=== PATIENT | female | born 1945 | race Caucasian/White ===

== ENCOUNTER 2024-09-17 08:24 | Observation (INO) | payer MEDICARE, SELFPAY ==
[2024-09-17] VITALS (19 sets, daily range): BP systolic 48–127; BP diastolic 22–96; PULSE 73–128; RESP 14–23; TEMP 36.5–37.2; O2SAT 95–98; BMI 23.6; BMI 26.9
--- NOTE | 2024-09-17 08:40 | PC.NURSE ---
PATIENT SENT TO ER PER Chris HILARIO APRN FOR FURTHER EVALUATION. REPORT GIVEN TO DR. VICKERS BY Chris HILARIO APRN. PATIENT TRANSPORTED TO ER VIA WHEELCHAIR WITH [facility] STAFF ASSIST. DAUGHTER AT BEDSIDE
--- NOTE | 2024-09-17 08:43 | ED_ITS ---
Discharge Plan Disposition Patient Disposition: Admitted Clinical Impressions Clinical Impression: Acute UTI, Atrial fibrillation with RVR, Acute hyponatremia, General weakness Discharge ED Provider: Patricia Curtis [facility] [place] General Chief complaint: Recheck/Abnormal Lab/Rx Stated complaint: weakness, dizzy, soa Time Seen by Provider: 09/17/24 08:43 History of Present Illness Provider Complaint: Patient daughter states that patient was sick last week and went to her PCP and got a couple shots not sure what or what for. Daughter states that patient normally active taking care of her . daughter lives in [place] and has been calling and checking on her and she became concerned when patient told her that she was not able to get out of bed so daughter drove in Patient states that she just feels very weak and not been able to eat or drink much and states just dont feel well daughter tried to get her to come in last night but she couldn't get up out of bed so this morning she got her up and brought her in, Daughter states mother is not acting right and as she was registering she felt like she was going to go down Related Data Home Medications ?Medication ?Instructions ?Recorded ?Confirmed aspirin 81 mg chewable tablet 81 mg PO DAILY heart [facility] 06/23/18 09/17/24 isosorbide mononitrate 60 mg 60 mg PO DAILY 06/23/18 09/17/24 tablet,extended release 24 hr apixaban 5 mg tablet (Eliquis) 5 mg PO BID 09/17/24 09/17/24 lisinopril 40 mg tablet 10 mg PO DAILY 09/17/24 09/17/24 Allergies Allergy/AdvReac Type Severity Reaction Status Date / Time No Known Allergies Allergy Unverified 09/17/24 10:21 [facility] Disclaimer: The information contained in this section may have been updated after the patient was seen, as this information can be updated by other users. Medical History Hyperlipemia Hypertension Atrial fibrillation Family History Other No significant family history Social History Smoking Status: Never smoker alcohol intake: never current occupational status: retired Travel in the last 8 weeks: None ROS Obtained: Yes All systems reviewed & no additional complaints except as documented and Yes Systems reviewed as appropriate & no additional complaints except as documented Constitutional Constitutional: Reports system reviewed and no additional complaints, except as documented, Reports as per HPI, Reports poor appetite, Reports lethargy and Reports weakness ENT Ears, Nose, Mouth, and Throat: Reports system reviewed and no additional complaints, except as documented, Reports as per HPI, Reports disequilibrium and Reports dizziness Cardiovascular Cardiovascular: Reports system reviewed and no additional complaints, except as documented and Reports as per HPI Respiratory Respiratory: Reports system reviewed and no additional complaints, except as documented and Reports as per HPI Gastrointestinal Gastrointestingal: Reports system reviewed and no additional complaints, except as documented and as per HPI Neurologic Neurologic: Reports system reviewed and no additional complaints, except as documented, Reports as per HPI, Reports disequilibrium, Reports dizziness and Reports weakness Physical Exam General General appearance: alert and in no apparent distress Respiratory Respiratory exam: Present normal lung sounds bilaterally (has had right lower lobe removed); Absent respiratory distress Cardiovascular Cardiovascular exam: Present regular rate, irregular rhythm, normal heart sounds and other (Patient has hx of Afib) Neurological Exam Neurological exam: Present alert and oriented X3 Skin Skin exam: Present warm and dry Medical Decision Making Medical Records Screening: Per USPSTF and CDC recommendations, given the prevalence of disease in our region, it is our hospital?s policy to screen for HIV and viral Hepatitis for all patients aged 18 and over and those with ongoing risk factors. Sami Inquiry Pt receiving controlled substance: No Sami was queried for this patient: No Lab Data 09/17/24 09:10 09/17/24 09:10 Medical Decision Narrative: Patient sitting in wheelchair, BP found to be low 73/35 patient denies chest pain, states just dont feel well and reports feeling weak Daughter states patient normally active and has been so weak she couldnt get out of bed and not eaten or drink much, States while registering patient was unstable and she felt like she was going to go down so she got her a wheelchair, Due to patient low BP and complaints recommended transfer to the ED for furhter work up and evaluation and she agreed Called ED and patient was moved to the ED
--- NOTE | 2024-09-17 09:02 | ECG_ITS ---
APPROVED REPORT Exam: Resting ECG HR:110 bpm ECG Measurements Heart Rate 110 AXES QRSd 78 QRS 12 QT 324 T 37 QTc 389 Conclusion ATRIAL FIBRILLATION WITH RAPID VENTRICULAR RESPONSE MODERATE ST DEPRESSION [0.05+ mV ST DEPRESSION] ABNORMAL ECG Electronically signed by : MIGUEL ÁNGEL VICKERS, 09/17/2024 15:28:42
--- NOTE | 2024-09-17 09:19 | PC.NURSE ---
lab is going to walk VBG over to RT; spoke with Zandra in Lab
[2024-09-17 09:26] LABS: VBG Base Excess -3.6 mmol/L (-2.4-2.3); VBG HCO3 22.5 mmol/L (23-30); VBG Oxygen Saturation 54.3 % (50-70); VBG PCO2 44.5 mmol/L (35-51); VBG PH 7.32 mmol/L (7.31-7.41); VBG PO2 29.2 mmol/L (28-40); VBG Total CO2 23.8 mmol/L (23-27)
[2024-09-17 09:28] LABS: Lactate Venous 3.2 mmol/L (0.4-2.0)
--- NOTE | 2024-09-17 09:29 | XR_ITS ---
PROCEDURE INFORMATION: Exam: XR Chest Exam date and time: 09/17/2024 9:28 AM Age: 78 years old Clinical indication: Other: Congestion, gen weakness TECHNIQUE: Imaging protocol: Radiologic exam of the chest. Views: 2 views. COMPARISON: CR HUMERLT XR humerus LT 06/23/2018 6:51 PM FINDINGS: Lungs: No evidence of pneumonia or interstitial edema. Surgical clips noted in the right hilar region. Pleural spaces: Unremarkable. No pleural effusion. No pneumothorax. Heart/Mediastinum: Unremarkable. No cardiomegaly. Diaphragm: Right hemidiaphragm is elevated. Question diaphragmatic eventration Bones/joints: Fixation hardware in the proximal humerus IMPRESSION: 1. No evidence of pneumonia or interstitial edema. 2. Right hemidiaphragm is elevated. Question diaphragmatic eventration
[2024-09-17 09:30] LABS: Albumin Level 3.8 g/dl (3.5-5.0); Chloride 99 mmol/L (98-107); Potassium 3.9 mmoL/L (3.5-5.1); Sodium 131 mmol/L (136-145)
[2024-09-17 09:32] LABS: Blood Urea Nitrogen 19 mg/dl (7-17); Creatinine Clearance Estimated 45 mL/min (50-200); Estimated Glomerular Filt Rate 54 ml/min (>60); GFR (African American) 65 ML/MIN (>60)
[2024-09-17 09:33] LABS: Alanine Aminotransferase 35 U/L (12-78); Albumin/Globulin Ratio 1.5 (1.1-1.8); Alkaline Phosphatase 96 U/L (38-126); Anion Gap 13.9 mEq/L (5-15); Aspartate Amino Transferase 47 U/L (14-36); Bilirubin,Total 1.2 mg/dl (0.2-1.3); Calcium 8.8 mg/dl (8.4-10.2); Carbon Dioxide 22 mmol/L (22.0-30.0); Globulin 2.6 g/dL (1.3-3.2); Glucose 156 mg/dl (74-100); Phosphorous 3.8 mg/dl (2.5-4.5); Total Protein,Serum 6.4 g/dl (6.3-8.2)
[2024-09-17 09:43] LABS: NT Pro Brain Natriuretic Pep. 737 pg/mL (0-450)
[2024-09-17 09:45] LABS: Troponin I 0.02 ng/ml (0.00-0.034)
[2024-09-17 09:55] LABS: Lactic Acid 2.4 mmol/L (0.7-2.1)
[2024-09-17 10:03] LABS: Basophils # 0.1 K/mm3 (0-0.2); Basophils % 0.7 % (0.1-2.0); Eosinophils % 0.2 % (0.1-12.0); Hematocrit 44.5 % (37.0-47.0); Hemoglobin 15.4 g/dL (12.2-16.2); Lymphocytes # 1.1 K/mm3 (0.7-4.5); Lymphocytes % 12.9 % (10-50); Mean Corpuscular HGB Conc 34.6 g/dL (31.8-35.4); Mean Corpuscular Volume 89.6 fl (81-99); Mean Platelet Volume 8.9 fl (7.4-10.4); Monocytes # 0.5 K/mm3 (0.1-1.0); Monocytes % 5.7 % (1.7-9.3); Neutrophils # 6.6 K/mm3 (1.8-7.8); Neutrophils % 80.5 % (37.0-80.0); Platelet Count 189 K/mm3 (142-424); Red Blood Count 4.96 M/mm3 (4.20-5.40); Red Cell Distribution Width 13.6 % (11.5-17.5); White Blood Count 8.2 K/mm3 (4.8-10.8)
[2024-09-17 10:10] LABS: Coronavirus 19, PCR Not Detected (NotDetected); Influenza A, PCR Not Detected (NotDetected); Influenza B, PCR Not Detected (NotDetected)
--- NOTE | 2024-09-17 10:11 | PC.NURSE ---
UA sent to lab
[2024-09-17] MEDS: 0.9 % SODIUM CHLORIDE 1000ML 1,000 ML 999 ML IV (10:27)
[2024-09-17 10:28] LABS: Microscopic, Urine URINE MICROSCOPIC (MICROSCOPIC)
[2024-09-17 10:29] LABS: Procalcitonin 0.638 ng/mL (0.0-2.0)
[2024-09-17 10:36] LABS: Appearance,Urine SL CLOUDY (Clear); Blood, Urine Negative (Negative); Color,Urine AMBER (Yellow); Glucose,Urine (UA) Negative (Negative); Ketones,Urine 1+ (Negative); Leukocyte Esterase,Urine 1+ (Negative); Nitrate,Urine POSITIVE (Negative); Protein,Urine 1+ (Negative); Specific Gravity, Urine >= 1.030 (1.005-1.030)
--- NOTE | 2024-09-17 10:46 | PC.NURSE ---
pt is resting in bed. family @ bedside. fluids infusing
[2024-09-17 10:48] LABS: Bacteria,Urine 2+ /lpf; Bilirubin,Urine 1+ (Negative); RBC,Urine Occasional #/hpf (0-3); Squamous Epithelial Cell,Urine Occasional #/hpf (0-5); WBC,Urine 20-50 #/hpf (0-3)
--- NOTE | 2024-09-17 10:49 | PC.NURSE ---
Rounded on patient; pt asked for come coffee and to watch the olivera is right. TV turned on. Family at BS, call light within reach. No other needs at this time.
[2024-09-17 10:57] LABS: T4 (Thyroxine) 10.2 ug/dl (5.53-11.0)
[2024-09-17 11:11] LABS: Thyroid Stimulating Hormone 1.12 uIU/mL (0.465-4.68)
--- NOTE | 2024-09-17 11:25 | ED_ITS ---
Discharge Plan Disposition Patient Disposition: Admitted Clinical Impressions Clinical Impression: Acute UTI, Atrial fibrillation with RVR, Acute hyponatremia, General weakness Discharge ED Provider: Patricia Curtis [facility] HPI General Chief complaint: Recheck/Abnormal Lab/Rx Stated complaint: weakness, dizzy, soa Time Seen by Provider: 09/17/24 08:43 Mode of Arrival: Wheelchair Source of Information: Patient and Relative Limitations: No Limitations Description of Symptoms (Recalled from ER Triage Doc. by RN): increased weakness,fatigue,poor appetite History of Present Illness HPI narrative: This patient is a 78-year-old female with a history of hypertension, hyperlipidemia, atrial fibrillation on Eliquis presenting to the emergency department for evaluation with concern for weakness, fatigue, poor appetite that has been going on for several days. She states she has had some cough and congestion and her left ear is a little bit painful. She has no other significant specific complaints, overall to stated that she does not feel well. She initially went to [facility] [place] who noted that her blood pressure was low and that she looked very pale and weak, so they sent her over here for further evaluation. Patient denies any significant headache, vision changes, numbness, tingling, unilateral weakness, gait issues, chest pain, shortness of breath, abdominal pain, vomiting, changes bowel movements, urinary symptoms, or other concerns. She does note very poor oral intake over the last little bit. Related Data Home Medications ?Medication ?Instructions ?Recorded ?Confirmed aspirin 81 mg chewable tablet 81 mg PO DAILY heart health 06/23/18 06/23/18 hydrochlorothiazide 25 mg tablet 25 mg PO DAILY Fluid 06/23/18 06/23/18 isosorbide mononitrate 60 mg 60 mg PO DAILY 06/23/18 09/17/24 tablet,extended release 24 hr lovastatin 20 mg tablet 20 mg PO DAILY Cholesterol 06/23/18 06/23/18 metoprolol succinate 100 mg 100 mg PO DAILY bp 06/23/18 06/23/18 tablet,extended release 24 hr (Toprol XL) Allergies Allergy/AdvReac Type Severity Reaction Status Date / Time No Known Allergies Allergy Unverified 09/17/24 10:21 [facility] Disclaimer: The information contained in this section may have been updated after the patient was seen, as this information can be updated by other users. Social History (Reviewed 09/17/24 @ 11:31 by JUNIE Camejo Smoking Status: Never smoker alcohol intake: never current occupational status: retired Travel in the last 8 weeks: None ROS Obtained: Yes All systems reviewed & no additional complaints except as documented Physical Exam General General appearance: alert and in no apparent distress Comment: Pale, generally weak Head Head exam: atraumatic and normocephalic Eye Eye exam: Present normal appearance, PERRL and EOMI ENT ENT exam: Present normal exam, normal oropharynx, mucous membranes moist and normal external ear exam Neck Neck exam: Present normal inspection, full ROM and trachea midline; Absent tenderness Chest Chest inspection: Present normal inspection and symmetric chest wall rise; Absent tenderness Respiratory Respiratory exam: Present normal lung sounds bilaterally; Absent respiratory distress, wheezes, stridor or accessory muscle use Cardiovascular Cardiovascular exam: Present tachycardia and irregular rhythm Abdominal Exam Abdominal exam: Present soft; Absent distention, tenderness or guarding Extremities Exam Extremities exam: Present normal inspection, full ROM and normal capillary refill; Absent tenderness or edema Back Exam Back exam: Present normal inspection and full ROM; Absent tenderness Neurological Exam Neurological exam: Present alert, oriented X3, CN II-XII intact and normal gait; Absent motor sensory deficit Psychiatric Psychiatric exam: Present normal affect and normal mood Skin Skin exam: Present warm, dry and pallor Medical Decision Making Medical Records Medical records reviewed: Yes I reviewed the patient's medical records. Screening: Per USPSTF and CDC recommendations, given the prevalence of disease in our region, it is our hospital?s policy to screen for HIV and viral Hepatitis for all patients aged 18 and over and those with ongoing risk factors. Sami Inquiry Pt receiving controlled substance: No Vital Signs: 09/17/24 08:35 09/17/24 08:37 09/17/24 08:45 Temperature 98.1 F 98.0 F Temperature Source Oral Oral Pulse Rate Pulse Rate [Right Brachial] 73 119 H Respiratory Rate 20 18 Blood Pressure Blood Pressure [Right Arm] 73/35 L 88/50 L 86/36 L Blood Pressure Mean Blood Pressure Mean [Right Arm] 47 62 52 Blood Pressure Source [Right Arm] Automatic Cuff Manual Cuff/ Auscultation Blood Pressure Position [Right Arm] Sitting Sitting 02 Sat by Pulse Oximetry 97 98 Oxygen Delivery Method Room Air 09/17/24 09:11 09/17/24 09:30 09/17/24 10:00 Temperature Temperature Source Pulse Rate 128 H 110 H 110 H Pulse Rate [Right Brachial] Respiratory Rate Blood Pressure 91/67 L 103/70 L 112/77 Blood Pressure [Right Arm] Blood Pressure Mean 75 88 Blood Pressure Mean [Right Arm] Blood Pressure Source [Right Arm] Blood Pressure Position [Right Arm] 02 Sat by Pulse Oximetry 97 97 98 Oxygen Delivery Method Room Air Room Air Room Air 09/17/24 10:30 09/17/24 11:00 09/17/24 11:30 Temperature Temperature Source Pulse Rate 112 H 117 H 92 H Pulse Rate [Right Brachial] Respiratory Rate Blood Pressure 107/70 L 103/69 L 105/68 L Blood Pressure [Right Arm] Blood Pressure Mean Blood Pressure Mean [Right Arm] Blood Pressure Source [Right Arm] Blood Pressure Position [Right Arm] 02 Sat by Pulse Oximetry 96 98 96 Oxygen Delivery Method Room Air Room Air 09/17/24 12:00 09/17/24 12:30 09/17/24 13:00 Temperature Temperature Source Pulse Rate 103 H 124 H Pulse Rate [Right Brachial] Respiratory Rate Blood Pressure 124/62 114/72 127/79 Blood Pressure [Right Arm] Blood Pressure Mean 85 89 Blood Pressure Mean [Right Arm] Blood Pressure Source [Right Arm] Blood Pressure Position [Right Arm] 02 Sat by Pulse Oximetry 95 98 Oxygen Delivery Method Room Air 09/17/24 13:31 09/17/24 13:34 09/17/24 14:00 Temperature Temperature Source Pulse Rate 121 H 91 H 113 H Pulse Rate [Right Brachial] Respiratory Rate 14 16 23 Blood Pressure 48/22 L 125/69 117/96 H Blood Pressure [Right Arm] Blood Pressure Mean 31 81 103 Blood Pressure Mean [Right Arm] Blood Pressure Source [Right Arm] Blood Pressure Position [Right Arm] 02 Sat by Pulse Oximetry 98 97 Oxygen Delivery Method 09/17/24 14:41 Temperature 97.8 F Temperature Source Pulse Rate 103 H Pulse Rate [Right Brachial] Respiratory Rate 20 Blood Pressure 106/62 L Blood Pressure [Right Arm] Blood Pressure Mean Blood Pressure Mean [Right Arm] Blood Pressure Source [Right Arm] Blood Pressure Position [Right Arm] 02 Sat by Pulse Oximetry Oxygen Delivery Method Lab Data Lab results reviewed: Yes I reviewed the patient's lab results. Lab Results 09/17/24 09:10: WBC 8.2, RBC 4.96, Hgb 15.4, Hct 44.5, MCV 89.6, MCH 31.0, MCHC 34.6, RDW 13.6, Plt Count 189, MPV 8.9, Neut % (Auto) 80.5 H, Lymph % (Auto) 12.9, [place] % (Auto) 5.7, Eos % (Auto) 0.2, Baso % (Auto) 0.7, Neut # (Auto) 6.6, Lymph # (Auto) 1.1, [place]ole # (Auto) 0.5, Eos # (Auto) 0.0, Baso # (Auto) 0.1, S odium 131 L, Potassium 3.9, Chloride 99, Carbon Dioxide 22, Anion Gap 13.9, BUN 19 H, Creatinine 1.00, Estimated Creat Clear 45, Estimated GFR 54 L, Est GFR ( Amer) 65, Glucose 156 H, Calcium 8.8, Phosphorus 3.8, Magnesium 2.0, Total Bilirubin 1.2, AST 47 H, ALT 35, Alkaline Phosphatase 96, Troponin I 0.02, NT-Pro-B Natriuret Pep 737 H, Total Protein 6.4, Albumin 3.8, Globulin 2.6, Albumin/Globulin Ratio 1.5, Procalcitonin 0.638, TSH 1.12, Thyroxine (T4) 10.2, HIV 1&2 Antibody Rapid Nonreactive 09/17/24 09:14: VBG pH 7.32, VBG pCO2 44.5, VBG pO2 29.2, VBG HCO3 22.5 L, VBG Total CO2 23.8, VBG O2 Saturation 54.3, VBG Base Excess -3.6 L, VBG Lactic Acid 3.2 H 09/17/24 09:25: Lactate 2.4 H 09/17/24 10:05: SARS-CoV-2 (PCR) Not detected, Influenza A Untype (PCR) Not detected, Influenza Type B (PCR) Not detected 09/17/24 10:10: Urine Color Patricia, Urine Appearance Sl cloudy, Urine pH 6.0, Ur Specific [place] >= 1.030, Urine Protein 1+ A, Urine Glucose (UA) Negative, Urine Ketones 1+, Urine Blood Negative, Urine Nitrate Positive, Urine Bilirubin 1+ A, Urine Urobilinogen 2.0, Ur Leukocyte Esterase 1+ A, Urine RBC Occasional, Urine WBC 20-50, Ur Squamous Epith Cells Occasional, Urine Bacteria 2+ 09/17/24 13:35: Lactate 1.9, Troponin I 0.03 09/17/24 09:10 09/17/24 09:10 Orders (Tests/Meds): ED MEDICATIONS Discontinued Medications Generic Name Dose Route Start Last Admin Trade Name Freq PRN Reason Stop Dose Admin Sodium Chloride 1,000 mls @ 999 mls/hr 09/17/24 10:17 09/17/24 10:27 Sod Chlor 0.9% 1000ml Bag IV 09/17/24 11:17 999 mls/hr .Q1H1M ONE Administration Ceftriaxone Sodium 2 gm/ 100 mls @ 200 mls/hr 09/17/24 11:30 09/17/24 12:18 Sodium Chloride IV 09/17/24 11:59 200 mls/hr ONCE ONE Administration ORDERS Category Date Time Status CXR 2 view (NOT portable) [XR chest 2V] Stat Exams 09/17/24 09:29 Completed BNP [NT Pro Brain Natriuretic Pep.] Stat Lab 09/17/24 09:10 Completed Complete Blood Count Auto Diff AMLAB Lab 09/18/24 06:00 Ordered Complete Blood Count Auto Diff Stat Lab 09/17/24 09:10 Completed Comprehensive Metabolic Panel AMLAB Lab 09/18/24 06:00 Ordered Comprehensive Metabolic Panel Stat Lab 09/17/24 09:10 Completed HIV (1&2) Antibody Rapid Stat Lab 09/17/24 09:10 Completed Hep C Ab with Reflex to RNA Stat Lab 09/17/24 09:10 Received Lactic Acid Follow Up (RFLX 1) Stat Lab 09/17/24 13:35 Completed Lactic Acid Stat Lab 09/17/24 09:25 Completed MAG [Magnesium] Stat Lab 09/17/24 09:10 Completed Magnesium AMLAB Lab 09/18/24 06:00 Ordered PHOS [Phosphorous] Stat Lab 09/17/24 09:10 Completed Procalcitonin Stat Lab 09/17/24 09:10 Completed Rapid PCR Covid and Flu A/B Stat Lab 09/17/24 10:05 Completed T4 (Thyroxine) Stat Lab 09/17/24 09:10 Completed TSH [Thyroid Stimulating Hormone] Stat Lab 09/17/24 09:10 Completed Trop I [Troponin I] Stat Lab 09/17/24 09:10 Completed Troponin I Q3H Lab 09/17/24 13:35 Completed Troponin I Q3H Lab 09/17/24 15:15 Ordered UA [Urinalysis and Microscopic] Stat Lab 09/17/24 10:10 Completed Blood Culture Stat Micro 09/17/24 11:54 Received Urine Culture Stat Micro 09/17/24 10:10 Received VBG [Venous Blood Gas] Stat RT 09/17/24 09:14 Completed ECG Data Tracing #1: I reviewed this ECG and interpreted as documented below: Atrial fibrillation with a ventricular rate of [address] changes concerning for ischemia. ECG initial impression date: 09/17/24 ECG initial impression time: 09:04 Medical Decision Narrative: In summary, this patient is a 78-year-old female presenting to the Emergency Department for evaluation of general weakness, poor appetite. Differential diagnoses considered include but are not limited to dehydration, electrolyte derangements, SHAMA, urinary tract infection, pneumonia, viral syndrome. Ruling out the most morbid conditions drove assessment. It should be noted patient's history includes atrial fibrillation which is not at goal therapy. This complicates all aspects of care by increasing patient's risk for morbidity On exam, the patient is sitting upright in bed in no acute distress. She is nontoxic-appearing. She does appear generally weak and pale. She is tachycardic with irrregular rhythm and has soft pressure with initial systolic in the 80s. No focal neurologic deficits. Cardiopulmonary and abdominal exams are benign. Workup included broad lab evaluation to evaluate for metabolic, infectious, cardiac causes. EKG demonstrates afib RVR. Patient given 1L normal saline given poor appetite and concerns for dehydration as a cause. I independently interpreted chest x-ray prior to the radiologist read and noted no acute focal consolidation concerning for pneumonia. Please see their read for final interpretation. Labs were obtained that demonstrated elevated BNP, hyponatremia, mildly elevated lactic, and concern for urinary tract infection. Urine culture and blood cultures were sent and are pending. On reassessment, patient had some improvement after administration of a liter bolus of IV fluids. She was not given full sepsis bolus given concerns for possible volume overload with elevated BNP in the setting of atrial fibrillation. She is also tachypneic with significant increased work of breathing that worsens whenever she walks to the bathroom. She did desaturate when walking to the bathroom and also her heart rate increased from the 110s to 160s with going to the bathroom. At rest, she was in the low 100s to 110s. I considered administering rate control, however unclear if this is compensatory related to possible sepsis secondary to UTI versus the primary issue. Given this, I did not administer rate control since the patient is stable at rest. At this time, patient was deemed to be appropriate for admission for continued monitoring of her heart rate as well as treatment of urinary tract infection. I had an interactive discussion with the hospitalist who admitted the patient for further evaluation and management. I started her on Rocephin prior to admission. Critical Care Critical Care Time Critical Care Time: No
[2024-09-17] MEDS: CEFTRIAXONE SODIUM 2 GM in 0.9 % SODIUM CHLORIDE 100 ML IV (12:18)
--- NOTE | 2024-09-17 13:16 | PC.NURSE ---
Dr. Curtis at bedside
[2024-09-17 13:28] LABS: Reflex Lactic Add Lactic Reflex
[2024-09-17 13:55] LABS: HIV (1&2) Antibody Rapid NONREACTIVE (NONREACTIVE)
[2024-09-17 13:56] LABS: Lactic Acid Follow Up (RFLX 1) 1.9 mmol/L (0.7-2.1)
--- NOTE | 2024-09-17 13:56 | P.HP_ITS ---
History of Present Illness *Admission Date: 09/17/24 *Reason for visit:: Weakness *History of present illness: Ms. washburn 78-year-old female who presented to the ER at the request of her family due to worsening fatigue, weakness, poor appetite. Family states that over the past week she has become more fatigued. They were concerned yesterday and have been encouraging her to go to the doctor. Was recently treated for concern for ear infection, does not recall what antibiotics or steroids she received. States that she has been feeling better from a URI standpoint but has had poor p.o. intake. Family encouraged her to come to the ER for evaluation today. Found to be in A-fib with RVR. Urinalysis grossly abnormal concerning for UTI. Received IV fluids in the ER and feeling somewhat better but given her weakness, medicine consulted for admission and further management. On evaluation, states she has been feeling poorly for several days. Denies headache, nausea, vomiting, chest pain, shortness of breath. Feels overall globally weak. Denies any urinary burning or frequency. Does report incontinence however and this is normal for her. Has been caring for her and has been overwhelmed. He has Alzheimer's and she has to be vigilant in caring for him. This affects her sleep and is impacting her self-care. [facility] Disclaimer: The information contained in this section may have been updated after the patient was seen, as this information can be updated by other users. Medical History Hyperlipemia Hypertension Atrial fibrillation Family History Other No significant family history Social History Smoking Status: Never smoker alcohol intake: never current occupational status: retired Travel in the last 8 weeks: None Review of Systems Review of Systems Review of systems (narrative): 14 point review of systems performed, pertinent positives and negatives as per HPI Constitutional Constitutional: Reports weakness ENT Ears, Nose, Mouth, and Throat: Reports disequilibrium and Reports dizziness *Neurologic Neurologic: Reports system reviewed and no additional complaints, except as documented, Reports as per HPI, Reports disequilibrium, Reports dizziness and Reports weakness Meds Home Medications and Allergies Home Medications ?Medication ?Instructions ?Recorded ?Confirmed ?Type aspirin 81 mg chewable tablet 81 mg PO DAILY heart health 06/23/18 09/17/24 History isosorbide mononitrate 60 mg 60 mg PO DAILY 06/23/18 09/17/24 History tablet,extended release 24 hr apixaban 5 mg tablet (Eliquis) 5 mg PO BID 09/17/24 09/17/24 History lisinopril 40 mg tablet 10 mg PO DAILY 09/17/24 09/17/24 History New Prescriptions to Start Prescriptions: Allergies Allergy/AdvReac Type Severity Reaction Status Date / Time No Known Allergies Allergy Unverified 09/17/24 10:21 Exam Data for Last 24 hours Vital signs and Labs for Last 24 Hours: Temp Pulse Resp BP Pulse Ox O2 Del Method 98.0 F 103 H 18 124/62 95 Room Air 09/17/24 08:45 09/17/24 12:00 09/17/24 08:45 09/17/24 12:00 09/17/24 12:00 09/17/24 12:00 Laboratory Results - last 24 hr 09/17/24 09:10: WBC 8.2, RBC 4.96, Hgb 15.4, Hct 44.5, MCV 89.6, MCH 31.0, MCHC 34.6, RDW 13.6, Plt Count 189, MPV 8.9, Neut % (Auto) 80.5 H, Lymph % (Auto) 12.9, [place] % (Auto) 5.7, Eos % (Auto) 0.2, Baso % (Auto) 0.7, Neut # (Auto) 6.6, Lymph # (Auto) 1.1, [place] # (Auto) 0.5, Eos # (Auto) 0.0, Baso # (Auto) 0.1, Sodium 131 L, Potassium 3.9, Chloride 99, Carbon Dioxide 22, Anion Gap 13.9, BUN 19 H, Creatinine 1.00, Estimated Creat Clear 45, Estimated GFR 54 L, Est GFR ( Amer) 65, Glucose 156 H, Calcium 8.8, Phosphorus 3.8, Magnesium 2.0, Total Bilirubin 1.2, AST 47 H, ALT 35, Alkaline Phosphatase 96, Troponin I 0.02, NT-Pro-B Natriuret Pep 737 H, Total Protein 6.4, Albumin 3.8, Globulin 2.6, Albumin/Globulin Ratio 1.5, Procalcitonin 0.638, TSH 1.12, Thyroxine (T4) 10.2, HIV 1&2 Antibody Rapid Nonreactive 09/17/24 09:14: VBG pH 7.32, VBG pCO2 44.5, VBG pO2 29.2, VBG HCO3 22.5 L, VBG Total CO2 23.8, VBG O2 Saturation 54.3, VBG Base Excess -3.6 L, VBG Lactic Acid 3.2 H 09/17/24 09:25: Lactate 2.4 H 09/17/24 10:05: SARS-CoV-2 (PCR) Not detected, Influenza A Untype (PCR) Not detected, Influenza Type B (PCR) Not detected 09/17/24 10:10: Urine Color Patricia, Urine Appearance Sl cloudy, Urine pH 6.0, Ur Specific [place] >= 1.030, Urine Protein 1+ A, Urine Glucose (UA) Negative, Urine Ketones 1+, Urine Blood Negative, Urine Nitrate Positive, Urine Bilirubin 1+ A, Urine Urobilinogen 2.0, Ur Leukocyte Esterase 1+ A, Urine RBC Occasional, Urine WBC 20-50, Ur Squamous Epith Cells Occasional, Urine Bacteria 2+ I & O for Last 24 hours: Intake & Output 09/14/24 09/15/24 09/16/24 09/17/24 23:59 22:59 23:59 23:59 Weight 60.328 kg Constitutional Constitutional: no acute distress, average body habitus and cooperative *Routine HEENT Exam Head: Present normocephalic Eye: Present EOMI and PERRL ENT: Present mucous membranes moist *Routine Neck Exam Neck: Present supple; Absent lymphadenopathy *Routine Respiratory Exam Respiratory: Present CTA bilaterally *Routine Cardiovascular Exam Cardiovascular: Present tachycardia and irregularly irregular *Routine Abdominal Exam Abdominal: Present soft and normoactive bowel sounds; Absent tenderness *Routine Rectal Exam Rectal:: deferred *Routine Genitalia Exam Genitalia:: deferred *Routine Extremities Exam Extremities: Absent cyanosis, clubbing or edema *Routine Skin Exam Skin: Present warm; Absent rash *Routine Neurological Exam Neurological: Present alert, oriented X3 and moving all extremities; Absent altered mental status Assessment and Plan *Assessment and plan (1) Atrial fibrillation with RVR: Status: Acute Category: Medical Code(s): I48.91 - Unspecified atrial fibrillation (2) Acute UTI: Status: Acute Category: Medical Code(s): N39.0 - Urinary tract infection, site not specified (3) Acute hyponatremia: Status: Acute Category: Medical Code(s): E87.1 - Hypo-osmolality and hyponatremia (4) General weakness: Status: Acute Category: Medical Code(s): R53.1 - Weakness Plan 78-year-old female who presented to the ER with weakness and fatigue. Workup concerning for A-fib and UTI. Discussed case with ER physician, request admission for further treatment of UTI, therapy eval, and further fluid resuscitation. I agreed to admit for further management. Problems addressed as follows: UTI: White count normal 8.2, urine grossly abnormal with positive nitrate, positive leuk esterase, 20-50 white cells and 2+ bacteria. Received dose of ceftriaxone in the ER, will continue Rocephin 1 g IV daily. Urine culture pending -Repeat CBC, CMP, magnesium ordered for the morning CHF A-fib -Rate uncontrolled at this time with heart rate 100 220. Will initiate metoprolol 5 mg IV once. Transition to oral metoprolol tartrate 25 mg twice daily this evening. Monitor for improvement, goal rate less than 90. Previously well-controlled on amiodarone in sinus rhythm but that was stopped a year ago after developing ocular calcifications. -Has continued Eliquis 5 mg twice daily. -Echocardiogram ordered, further management pending results. -BNP mildly elevated at 737. Does not appear frankly volume overloaded. -Monitoring troponin in the setting of A-fib. No chest pain at this time. -TSH normal at 1.1, magnesium 2.0, potassium 3.9. Sodium low at 131, monitor for improvement with fluid resuscitation. Unclear etiology at this time Due to weakness, PT and OT consulted to evaluate. -Case management consulted to evaluate and assist with any resources given patient's fatigue being primary caregiver for her with Alzheimer's Full code Eliquis 5 mg twice daily Cardiac diet
--- NOTE | 2024-09-17 13:59 | PC.NURSE ---
call made to house cleaner for bed placement
[2024-09-17 14:09] LABS: Troponin I 0.03 ng/ml (0.00-0.034)
--- NOTE | 2024-09-17 14:33 | PC.NURSE ---
report called to Rohini on second floor
--- NOTE | 2024-09-17 14:46 | PC.NURSE ---
arrived by w/c from ED
--- NOTE | 2024-09-17 15:50 | CA_ITS ---
APPROVED REPORT EXAM: Comprehensive 2D, Doppler, and color-flow Echocardiogram Cardiovascular Invasive Specialist: Nicole Vargas, RCS, RVS Ht: 4 ft 11 in Wt: 133lbs BSA: 1.55 BP: 124/62 mmHg Rhythm: Atrial Fibrillation Indications: uti, aFIB, HTN, HLD 2D Dimensions IVSd 0.87 cm F: 0.6-1.0 LVEF (Visual) 44.00 % PWd 0.81 cm F: 0.6 - 1.0 LA Volume 67.00 mL LVDd 4.69 cm F: 3.9 - 5.3 LA Volume Index 43.23 mL/m2 (M/F) 16-34 LVDs 3.79 cm F: 2.2 - 3.5 EF AP4 53.40 % Left Atrium 3.72 cm F: 2.7 - 3.8 GL Strain -14.7 % M-Mode Dimensions RVDd 3.00 cm (0.9-2.6) LA Diam 3.96 cm (1.9-4.0) LVDd 4.75 cm (3.5-5.7) LVDs 3.72 cm (3.5-5.7) IVSd 0.89 cm (0.6-1.1) PWd 0.68 cm (0.6-1.1) EF (Teich) 43.90% EPSs 0.75 cm FS 21.70% EDV (Teich) 104.90 mL TAPSE 1.58 (<1.7) ESV (Teich) 58.90 mL LV Diastology E Decel Time 120 (160-240 msec) E/A Ratio 1.86 MED A' 8.40 cm/s LAT A' 9.50 cm/s Aortic Valve PHILLIP Index 1.52 cm2/m2 AoV Peak [place]. 172.0 (50-130 cm/s) AO Peak GR. 11.90 mmHg AO Mean GR. 5.90 (<5 mmHg) AO VTI 25.4 (18-25 cm) PHILLIP (VTI) 2.42 (2.5-4.5 cm2) Mitral Valve MV A Velocity 81.0 (40-130 cm/s) E/A Ratio 1.86 MV Mean Gr. 3.50 (<2mmHg) Tricuspid Valve TR P. Velocity 282.00 cm/s RAP Estimate 10.00 mmHg RVSP 41.80 mmHg Left Ventricle The left ventricle is normal size. The left ventricular systolic function is normal. The left ventricular ejection fraction is within the normal range. There is increased LV wall thickness. There is normal LV segmental wall motion. The left ventricular diastolic function is normal. LVEF is 60%. Right Ventricle The right ventricle is normal size. The right ventricular systolic function is normal. Atria Left atrium is moderately dilated. Right atrium is mildly dilated. There is no Doppler evidence of interatrial shunt. Aortic Valve The aortic valve is mildly thickened. There is no aortic valvular stenosis. Trace aortic regurgitation. Mitral Valve The mitral valve leaflets are mildly thickened. No evidence of mitral valve stenosis. At least mild mitral regurgitation is present. The MR severity may be underestimated due to technically difficult study and eccentric jet. Tricuspid Valve The tricuspid valve leaflets are thin and pliable. Mild tricuspid regurgitation. RVSP is 25-30 mmHg. Pulmonic Valve The pulmonary valve is normal in structure. Trace pulmonic regurgitation. Great Vessels The aortic root is not well-visualized. IVC is normal in size and collapses >50% with inspiration. Pericardium There is no pericardial effusion. Other Information Study Quality: Technically Difficult Conclusion Technically difficult study due to poor acoustic windows. Normal biventricular systolic function. Biatrial dilation. At least mild MR (The MR severity may be underestimated due to technically difficult study and eccentric MR jet). Mild TR. Electronically signed by : Hilda Mcqueen MD 09/18/2024 11:55:43
[2024-09-17 16:12] LABS: Troponin I 0.04 ng/ml (0.00-0.034)
[2024-09-17] MEDS: METOPROLOL TARTRATE 5MG/5ML VIAL 5 MG IV (16:37)
[2024-09-17] MEDS: METOPROLOL TARTRATE 25MG TABLET 25 MG PO (20:47)
[2024-09-17] MEDS: APIXABAN 5MG TABLET 5 MG PO (20:47)
[2024-09-18] VITALS: BP 104/57; PULSE 78; RESP 16; TEMP 37.1; O2SAT 96
[2024-09-18 01:52] VITALS: PULSE 70
[2024-09-18 04:00] VITALS: BP 116/77; PULSE 79; RESP 16; TEMP 36.7; O2SAT 96; BMI 27.1
[2024-09-18 06:00] VITALS: PULSE 70
--- NOTE | 2024-09-18 06:22 | PC.NURSE ---
Pt A&OX4 and has tolerated room air. Lung sounds clear and bowel sounds active. She has remained Afib on tele. She has slept the majority of the night. Family has remained at bedside. No complaints at this time, call light within reach.
[2024-09-18 07:05] LABS: Basophils % 0.9 % (0.1-2.0); Eosinophils # 0.1 K/mm3 (0.0-0.4); Eosinophils % 1.3 % (0.1-12.0); Hematocrit 41.5 % (37.0-47.0); Hemoglobin 14.3 g/dL (12.2-16.2); Lymphocytes # 1.5 K/mm3 (0.7-4.5); Lymphocytes % 33.1 % (10-50); Mean Corpuscular HGB Conc 34.5 g/dL (31.8-35.4); Mean Corpuscular Hemoglobin 30.8 pg (27.0-31.2); Mean Corpuscular Volume 89.2 fl (81-99); Mean Platelet Volume 8.5 fl (7.4-10.4); Monocytes # 0.4 K/mm3 (0.1-1.0); Monocytes % 8.7 % (1.7-9.3); Neutrophils # 2.5 K/mm3 (1.8-7.8); Platelet Count 170 K/mm3 (142-424); Red Blood Count 4.65 M/mm3 (4.20-5.40); Red Cell Distribution Width 13.5 % (11.5-17.5); White Blood Count 4.5 K/mm3 (4.8-10.8)
[2024-09-18 07:27] LABS: Alanine Aminotransferase 27 U/L (12-78); Albumin Level 3.1 g/dl (3.5-5.0); Albumin/Globulin Ratio 1.3 (1.1-1.8); Alkaline Phosphatase 77 U/L (38-126); Anion Gap 8.5 mEq/L (5-15); Aspartate Amino Transferase 36 U/L (14-36); Bilirubin,Total 0.7 mg/dl (0.2-1.3); Blood Urea Nitrogen 10 mg/dl (7-17); Calcium 8.4 mg/dl (8.4-10.2); Carbon Dioxide 24 mmol/L (22.0-30.0); Chloride 108 mmol/L (98-107); Creatinine Clearance Estimated 45 mL/min (50-200); Estimated Glomerular Filt Rate 97 ml/min (>60); GFR (African American) 117 ML/MIN (>60); Globulin 2.4 g/dL (1.3-3.2); Glucose 88 mg/dl (74-100); Magnesium 2.2 mg/dl (1.6-2.3); Potassium 3.5 mmoL/L (3.5-5.1); Sodium 137 mmol/L (136-145); Total Protein,Serum 5.5 g/dl (6.3-8.2)
[2024-09-18 07:59] VITALS: BP 115/63; PULSE 86; RESP 17; TEMP 36.6; O2SAT 97
[2024-09-18 08:00] VITALS: PULSE 90
[2024-09-18] MEDS: METOPROLOL TARTRATE 25MG TABLET 25 MG PO (08:22)
[2024-09-18] MEDS: ASPIRIN 81MG CHEWABLE TABLET 81 MG PO (08:23)
[2024-09-18] MEDS: APIXABAN 5MG TABLET 5 MG PO (08:23)
--- NOTE | 2024-09-18 09:47 | HMH.PTEV ---
Physical Therapy Evaluation Rehab PT IP Evaluation Start: 09/17/24 13:54 Freq: ONCE Status: Active Protocol: Document 09/18/24 09:21 MARLENMarlysMELISSA (Rec: 09/18/24 09:47 RAY [id number]) Subjective/History History History Pt is 78-year-old female who presented to the ER at the request of her family due to worsening fatigue, weakness, poor appetite. Pt states she lives in a multi-level home w/ her but does not have to navigate stairs as all her needs are on ground level. Pt 's daughter at bedside reports she sometimes uses a cane . Subjective Subjective Pt presents supine in bed this morning w/ daughter at bedside. Pt is 3x oriented and denies any pain or dizziness. Pt consents to therapy services this morning. New diagnosis of cancer in past 12 No months? Rehab PT IP Eval Objective Appearance Patient Behavior Appropriate,Cooperative Patient Orientation Person,Place,Birthday Difficulty following instructions none Speech Pattern Clear,Appropriate,Coherent Ambulation Patient Able to Ambulate Yes Ambulation Observation IP General Gait Pattern Observation No Deviations/Normal Ambulation Distance (feet) 30 Ambulation Assistive Device None Ambulation Ability Supervision/Stand by Balance Ability to Arise Able, uses arms to help Sitting Balance Steady, safe Standing Balance Steady, wide stance Dynamic Sitting Balance Ability Normal Dynamic Standing Balance Ability Good Transfers Bed Transfer Ability Independent Sit to Stand Bed Transfer Ability Independent Rehab PT IP prob,goals,plan Problems Date of Evaluation: 09/18/24 Discharge Plan PT Discharge Plan Currently, PT services are not indicated due to independence w/ bed mobility, transfers, and ambulation. 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 Eval Complexity Eval Charge Codes 19733 - High Complexity PHYSICIAN CERTIFICATION: I certify the specified therapy services for [place] are required, authorized, and reviewed every 30 days.
--- NOTE | 2024-09-18 10:08 | HMH.PHAINT1 ---
Pharmacy Intervention Comments: Home medication list verified using list from outpatient pharmacy
--- NOTE | 2024-09-18 10:34 | SW/DCPLANNER ---
I spoke w/ this patient regarding plans once medically stable for discharge. PT/OT evaluated patient and recommended home health services. Patient and her daughter were present at the time of my visit this AM. Patient has refused home health services at this time due to not being homebound. I did provide patient/daughter w/ [facility] Resource List and a private sitters list. I discussed w/ patient and daughter the importance of [facility] to [facility] to see if patient/ would be a candidate for any services. I will continue to follow up w/ patient and family. Discharge date is unknown at this time.
--- NOTE | 2024-09-18 10:44 | EXP.DC.SUM ---
General Admission date:: 09/17/24 Discharge date: 09/18/24 HPI HPI HPI: Ms. Garcia is a 78-year-old female who presented to the ER at the request of her family due to worsening fatigue, weakness, poor appetite. Family states that over the past week she has become more fatigued. They were concerned yesterday and have been encouraging her to go to the doctor. Was recently treated for concern for ear infection, does not recall what antibiotics or steroids she received. States that she has been feeling better from a URI standpoint but has had poor p.o. intake. Family encouraged her to come to the ER for evaluation today. Found to be in A-fib with RVR. Urinalysis grossly abnormal concerning for UTI. Received IV fluids in the ER and feeling somewhat better but given her weakness, medicine consulted for admission and further management. On evaluation, states she has been feeling poorly for several days. Denies headache, nausea, vomiting, chest pain, shortness of breath. Feels overall globally weak. Denies any urinary burning or frequency. Does report incontinence however and this is normal for her. Has been caring for her and has been overwhelmed. He has Alzheimer's and she has to be vigilant in caring for him. This affects her sleep and is impacting her self-care. Hospital Course Hospital Course Hospital Course: 78-year-old female who presented to the ER with weakness and fatigue. Workup concerning for A-fib and UTI. Discussed case with ER physician, request admission for further treatment of UTI, therapy eval, and further fluid resuscitation. I agreed to admit for further management. Problems addressed as follows: UTI: White count normal during admission, urine grossly abnormal with positive nitrate, positive leuk esterase, 20-50 white cells and 2+ bacteria. Received dose of ceftriaxone in the ER. Urine growing gram-negative rods, speciated to E. coli sensitive to levofloxacin. Transitioned to levofloxacin to complete empiric course. Asymptomatic by morning. CHF A-fib -Rate uncontrolled at this time with heart rate 100-120. Initiated on metoprolol IV. Transitioned to metoprolol tartrate 25 mg orally twice daily. Had improvement in her rate control. Remained stable on room air. 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 Continue her Eliquis 5 mg twice daily. Echocardiogram obtained during admission showing normal BiV systolic function, biatrial dilation, mild MR and TR. -TSH normal at 1.1, magnesium 2.0, potassium 3.9 during mission. Sodium low at 131 on admission. Improved to 137 by morning. Due to weakness, PT and OT consulted to evaluate. -Case management consulted to evaluate and assist with any resources given patient's fatigue being primary caregiver for her with Alzheimer's. Feeling better by morning. Due to patient's independence, no indication for home health. Goals of care discussion with family about further resources to assist patient with her as it appears to be having significant toll on her physical wellbeing. They are working on coming up with a schedule to spend time with their parents as well as looking into assistance during the day. Total time spent on discharge 32 minutes in counseling, documentation, chart review, and direct care with patient. Exam Data for Last 24 hours Vital signs and Labs for Last 24 Hours: Temp Pulse Resp BP Pulse Ox O2 Del Method 97.9 F 90 17 115/63 97 Room Air 09/18/24 07:59 09/18/24 08:00 09/18/24 07:59 09/18/24 07:59 09/18/24 07:59 09/18/24 07:59 Laboratory Results - last 24 hr 09/17/24 09:10: TSH 1.12, Thyroxine (T4) 10.2, HIV 1&2 Antibody Rapid Nonreactive 09/17/24 10:10: Urine Color Patricia, Urine Appearance Sl cloudy, Urine pH 6.0, Ur Specific [place] >= 1.030, Urine Protein 1+ A, Urine Glucose (UA) Negative, Urine Ketones 1+, Urine Blood Negative, Urine Nitrate Positive, Urine Bilirubin 1+ A, Urine Urobilinogen 2.0, Ur Leukocyte Esterase 1+ A, Urine RBC Occasional, Urine WBC 20-50, Ur Squamous Epith Cells Occasional, Urine Bacteria 2+ 09/17/24 13:35: Lactate 1.9, Troponin I 0.03 09/17/24 15:39: Troponin I 0.04 H 09/18/24 06:21: WBC 4.5 L D, RBC 4.65, Hgb 14.3, Hct 41.5, MCV 89.2, MCH 30.8, MCHC 34.5, RDW 13.5, Plt Count 170, MPV 8.5, Neut % (Auto) 56.0, Lymph % (Auto) 33.1, [place] % (Auto) 8.7, Eos % (Auto) 1.3, Baso % (Auto) 0.9, Neut # (Auto) 2.5, Lymph # (Auto) 1.5, [place] # (Auto) 0.4, Eos # (Auto) 0.1, Baso # (Auto) 0.0, Sodium 137, Potassium 3.5, Chloride 108 H, Carbon Dioxide 24, Anion Gap 8.5, BUN 10 D, Creatinine 0.60 D, Estimated Creat Clear 45, Estimated GFR 97, Est GFR ( Amer) 117 D, Glucose 88 D, Calcium 8.4, Magnesium 2.2, Total Bilirubin 0.7, AST 36, ALT 27, Alkaline Phosphatase 77, Total Protein 5.5 L, Albumin 3.1 L D, Globulin 2.4, Albumin/Globulin Ratio 1.3 I & O for Last 24 hours: Intake & Output 09/15/24 09/16/24 09/17/24 09/18/24 22:59 23:59 23:59 23:59 Intake Total 210 / 460 610 / 610 Output Total 0 / 0 0 / 0 Balance 210 / 460 610 / 610 Weight 60.356 kg 61.008 kg Microbiology Reports for the Last 24 Hours: Microbiology 09/17/24 10:10 Urine,Clean Catch Urine Culture - Preliminary Gram Negative Rods Constitutional Constitutional: no acute distress *Routine HEENT Exam Head: Present normocephalic Eye: Present EOMI and PERRL ENT: Present mucous membranes moist *Routine Neck Exam Neck: Present supple; Absent lymphadenopathy *Routine Respiratory Exam Respiratory: Present CTA bilaterally *Routine Cardiovascular Exam Cardiovascular: Present RRR *Routine Abdominal Exam Abdominal: Present soft and normoactive bowel sounds; Absent tenderness *Routine Extremities Exam Extremities: Absent cyanosis, clubbing or edema *Routine Skin Exam Skin: Present warm; Absent rash *Routine Neurological Exam Neurological: Present alert and oriented X3 Results Data Completed and Pending Labs on day of discharge: Labs from last 24 hours 09/18/24 09/17/24 09/17/24 06:21 15:39 13:35 WBC 4.5 L D RBC 4.65 Hgb 14.3 Hct 41.5 MCV 89.2 MCH 30.8 MCHC 34.5 RDW 13.5 Plt Count 170 MPV 8.5 Neut % (Auto) 56.0 Lymph % (Auto) 33.1 [place] % (Auto) 8.7 Eos % (Auto) 1.3 Baso % (Auto) 0.9 Neut # (Auto) 2.5 Lymph # (Auto) 1.5 [place] # (Auto) 0.4 Eos # (Auto) 0.1 Baso # (Auto) 0.0 Sodium 137 Potassium 3.5 Chloride 108 H Carbon Dioxide 24 Anion Gap 8.5 BUN 10 D Creatinine 0.60 D Estimated Creat Clear 45 Estimated GFR 97 Est GFR ( Amer) 117 D Glucose 88 D Lactate 1.9 Calcium 8.4 Magnesium 2.2 Total Bilirubin 0.7 AST 36 ALT 27 Alkaline Phosphatase 77 Troponin I 0.04 H 0.03 Total Protein 5.5 L Albumin 3.1 L D Globulin 2.4 Albumin/Globulin Ratio 1.3 TSH Thyroxine (T4) Urine Color Urine Appearance Urine pH Ur Specific [place] Urine Protein Urine Glucose (UA) Urine Ketones Urine Blood Urine Nitrate Urine Bilirubin Urine Urobilinogen Ur Leukocyte Esterase Urine RBC Urine WBC Ur Squamous Epith Cells Urine Bacteria HIV 1&2 Antibody Rapid 09/17/24 09/17/24 10:10 09:10 WBC RBC Hgb Hct MCV MCH MCHC RDW Plt Count MPV Neut % (Auto) Lymph % (Auto) [place] % (Auto) Eos % (Auto) Baso % (Auto) Neut # (Auto) Lymph # (Auto) [place] # (Auto) Eos # (Auto) Baso # (Auto) Sodium Potassium Chloride Carbon Dioxide Anion Gap BUN Creatinine Estimated Creat Clear Estimated GFR Est GFR ( Amer) Glucose Lactate Calcium Magnesium Total Bilirubin AST ALT Alkaline Phosphatase Troponin I Total Protein Albumin Globulin Albumin/Globulin Ratio TSH 1.12 Thyroxine (T4) 10.2 Urine Color Patricia Urine Appearance Sl cloudy Urine pH 6.0 Ur Specific [place] >= 1.030 Urine Protein 1+ A Urine Glucose (UA) Negative Urine Ketones 1+ Urine Blood Negative Urine Nitrate Positive Urine Bilirubin 1+ A Urine Urobilinogen 2.0 Ur Leukocyte Esterase 1+ A Urine RBC Occasional Urine WBC 20-50 Ur Squamous Epith Cells Occasional Urine Bacteria 2+ HIV 1&2 Antibody Rapid Nonreactive Preliminary micro results at discharge 09/17/24 10:10 Urine Culture - Preliminary Urine,Clean Catch Gram Negative Rods DS: Diagnosis Discharge Diagnosis (1) Atrial fibrillation with RVR: Status: Acute Code(s): I48.91 - Unspecified atrial fibrillation (2) Acute UTI: Status: Acute Code(s): N39.0 - Urinary tract infection, site not specified (3) Acute hyponatremia: Status: Acute Code(s): E87.1 - Hypo-osmolality and hyponatremia (4) General weakness: Status: Acute Code(s): R53.1 - Weakness Meds Home Medications and Allergies Home Medications ?Medication ?Instructions ?Recorded ?Confirmed ?Type aspirin 81 mg chewable tablet 81 mg PO DAILY 06/23/18 09/17/24 History apixaban 5 mg tablet (Eliquis) 5 mg PO BID 09/17/24 09/17/24 History lisinopril 40 mg tablet 40 mg PO DAILY 09/17/24 09/18/24 History levofloxacin 750 mg tablet 750 mg PO Q24H #3 tabs 09/18/24 Rx metoprolol tartrate 25 mg tablet 25 mg PO BID 30 days #60 tabs 09/18/24 Rx New Prescriptions to Start Prescriptions: Jose Martinez metoprolol tartrate Jose Adam Allergies Allergy/AdvReac Type Severity Reaction Status Date / Time No Known Allergies Allergy Unverified 09/17/24 10:21 Discharge Plan Disposition Patient Disposition: Home, Self-Care Condition: Fair Follow up Plan Follow up with: Harsh Elliott MD [Primary Care Provider] - 09/24/24 2:15 pm (appointment in [place] office) Prescriptions/Medication Reconciliation: New metoprolol tartrate 25 mg Tablet 25 mg PO BID 30 Days Qty: 60 0RF levofloxacin 750 mg tablet 750 mg PO Q24H Qty: 3 0RF Rx Instructions: first dose due 09/19/24 Continued aspirin 81 MG tablet,chewable 81 mg PO DAILY Eliquis 5 mg tablet 5 mg PO BID Held lisinopril 40 mg tablet 40 mg PO DAILY Hold Instructions: Pending follow-up with PCP and reevaluation of blood pressure Discontinued isosorbide mononitrate 60 MG tablet extended release 24 hr 60 mg PO DAILY Problem Reconciliation Problems Reviewed?: Yes Patient Discharge Instructions ACTIVITY: Continue current activity DIET: continue same diet Patient Instructions: Urinary Tract Infection, Atrial Fibrillation, DI for Atrial Fibrillation, DI for Urinary Tract Infection (UTI), DI for Muscle Weakness Print Language: [place] Providers Primary Care Provider: Harsh Elliott Admit Provider: Jose Adam Attending Provider: Jose Adam
[2024-09-18 11:15] LABS: HCV Ab Non Reactive (Non Reactive)
[2024-09-18] MEDS: levoFLOXacin 750 MG TABLET PO (11:35)
--- NOTE | 2024-09-19 13:04 | CARE MANAGER ---
Contacted patient related to hospital discharge. She states she is feeling better. She has her new medications and is aware of changes to other medications. She also is aware of follow up appointment. He denies questions or concerns.
== END 2024-09-18 12:06 | disposition home or self-care (01) ==
LOC: UTC 08:28 → ER 08:55 → 2ND 14:08
PROVIDERS: Admitting Provider Internal Medicine Adolescent Medicine; Emergency Provider Emergency Medicine; PCP Internal Medicine Adolescent Medicine; Visit Provider Internal Medicine Adolescent Medicine
DX: I48.20 Chronic atrial fibrillation, unspecified (principal); N39.0 Urinary tract infection, site not specified; E87.1 Hypo-osmolality and hyponatremia; R53.1 Weakness; Z79.899 Other long term (current) drug therapy; Z79.01 Long term (current) use of anticoagulants
CPT/HCPCS: 36415; 71046; 80053; 81001; 82803; 83605; 83735; 83880; 84100; 84145; 84436; 84443; 84484; 85025; 86803; 87040; 87086; 87088; 87186; 87389; 87636; 93005; 93306; 97163; 97165; 99285; G0378; J0696; J7030